=== PATIENT | female | born 1940 | race Caucasian/White ===

== ENCOUNTER 2017-09-03 08:15 | Day surgery (SDC) | payer MEDICARE ==
[~2017-09-03] VITALS: Ht 160 cm; Wt 66.2 kg
[~2017-09-03 08:15] MED LIST: ALBU90OI6 INH; AMLO10 PO; ATOR10 PO; Azor 10-20 MG1 EACH; CALMAGZIN PO; CHOL10002 PO; FISH OIL + D31 EACH PO; LISI20 PO; OXYB5 PO; TURMERIC500 M2 PO; VIT C BIOFLAVO PO; VIT E PO; VITAMIN B122500 MC1 PO; [UNRECOGNIZED DRUG - OTHER]
[2017-09-04 05:55] LABS: BASOPHILS ABSOLUTE AUTO 0.01 K/mm3 (0.00-0.23); BASOPHILS PERCENT AUTO 0 % (0-2); EOSINOPHILS ABSOLUTE AUTO 0.04 K/mm3 (0.00-0.68); EOSINOPHILS PERCENT AUTO 1 % (0-6); Hematocrit 30.8 % (33.0-51.0); Hemoglobin 9.8 g/dL (11.5-16.0); IMMATURE GRAN ABSOLUTE AUTO 0.02 K/mm3 (0.00-0.10); IMMATURE GRAN PERCENT AUTO 0 % (0-1); LYMPHOCYTES ABSOLUTE AUTO 1.25 K/mm3 (0.84-5.20); LYMPHOCYTES PERCENT AUTO 15 % (21-46); MONOCYTES ABSOLUTE AUTO 0.83 K/mm3 (0.16-1.47); MONOCYTES PERCENT AUTO 10 % (4-13); Mean Corpuscular HGB 29.9 pg (26.0-34.0); Mean Corpuscular HGB Conc 31.8 g/dL (31.5-36.5); Mean Corpuscular Volume 94 fL (80-100); Mean Platelet Volume 10.3 fL (9.1-12.4); NEUTROPHILS ABSOLUTE AUTO 6.24 K/mm3 (1.96-9.15); NEUTROPHILS PERCENT AUTO 74 % (41-73); Platelet Count 267 K/mm3 (150-400); RDW Standard Deviation 48.6 fL (35.1-46.3); Red Blood Cell Count 3.28 M/mm3 (3.80-5.20); White Blood Cell Count 8.39 K/mm3 (4.00-11.30)
[2017-09-04 06:12] LABS: Bun/Creatinine Ratio 25.7 (12.0-20.0); Calcium, Blood 8.6 mg/dL (8.5-10.1); Creatinine, Blood 1.13 mg/dL (0.40-1.00)
[2017-09-04] MEDS ORDERED: ASPI325EC PO (09:30)
[2017-09-04] MEDS ORDERED: PROM25 PO (09:31)
[2017-09-04] MEDS ORDERED: Percocet 5-3251 EACH PO (09:31)
== END 2017-09-04 12:55 | disposition home or self-care (01) ==
LOC: ORSCMMR 08:15 → ORD 10:00 → SURS 12:19 → ORSCMMR 09-04 12:55
PROVIDERS: Orthopaedic Surgery
PROC: 0SRC0J9 Replacement of Right Knee Joint with Synthetic Substitute, Cemented, Open Approach (ICD-10-PCS; principal; 2017-09-03 10:00)
DX: M17.11 Unilateral primary osteoarthritis, right knee (principal); Z01.818 Encounter for other preprocedural examination; I10 Essential (primary) hypertension; J44.9 Chronic obstructive pulmonary disease, unspecified; Z79.899 Other long term (current) drug therapy; Z87.891 Personal history of nicotine dependence
CPT/HCPCS: 36415; 73560-RT; 80048; 85025; 86850; 86900; 86901; 88300; 97110; 97116; 97161; 97530; C1713; C1776; G8978; G8979; G8980; J0171; J0690; J0735; J1100; J1885; J2405; J2795; J3010; J7120

== ENCOUNTER → 2022-08-29 | Outpatient (CLI) | payer MEDICARE ==
[~2022-08-29] MED LIST changes: +ASPI325EC PO; +PROM25 PO; +Percocet 5-3251 EACH PO
[2022-08-29 11:06] LABS: Albumin, Blood 3.8 g/dL (3.4-5.0); Anion Gap 9 mmol/L (6-16); Blood Urea Nitrogen 59 mg/dL (8-24); Bun/Creatinine Ratio 19.5 (12.0-20.0); CO2, Blood 22 mmol/L (21-32); Calcium, Blood 9.1 mg/dL (8.5-10.1); Chloride, Blood 108 mmol/L (98-108); Creatinine, Blood 3.02 mg/dL (0.40-1.00); Glomerular Filtration Rate 15 (60-); Glucose, Blood 96 mg/dL (70-99); Magnesium, Blood 2.7 mg/dL (1.6-2.4); Phosphorus, Blood 3.8 mg/dL (2.5-4.9); Sodium, Blood 139 mmol/L (136-145)
[2022-08-29 11:38] LABS: Creatinine Urine 44.4 mg/dL (27.00-270.00); Protein, Urine Quantitative 55.2 mg/dL (0.0-11.9)
== END ==
LOC: LAB SHORT 09:22 → LAB 09:22
PROVIDERS: Internal Medicine Nephrology
DX: N18.30 Chronic kidney disease, stage 3 unspecified (principal); D63.1 Anemia in chronic kidney disease; N25.81 Secondary hyperparathyroidism of renal origin; R76.9 Abnormal immunological finding in serum, unspecified; R94.5 Abnormal results of liver function studies; R94.6 Abnormal results of thyroid function studies; D51.8 Other vitamin B12 deficiency anemias; D52.8 Other folate deficiency anemias; D50.9 Iron deficiency anemia, unspecified
CPT/HCPCS: 36415; 80069; 81050; 82043; 82570; 83735; 84156

== ENCOUNTER → 2022-11-16 | Outpatient (CLI) | payer MEDICARE ==
[2022-11-19 10:34] LABS: Stool Occult Bld Immuno 1 Positive (NEGATIVE)
== END ==
LOC: LAB SHORT 20:00 → LAB 20:00
PROVIDERS: Internal Medicine Nephrology
DX: N18.30 Chronic kidney disease, stage 3 unspecified (principal); D63.1 Anemia in chronic kidney disease; R73.09 Other abnormal glucose; D51.8 Other vitamin B12 deficiency anemias; D52.8 Other folate deficiency anemias; D50.9 Iron deficiency anemia, unspecified
CPT/HCPCS: 82274

== ENCOUNTER 2023-01-01 14:38 | Emergency (ER) | payer MEDICARE ==
[~2023-01-01] VITALS: Ht 160 cm; Wt 55.8 kg
[2023-01-01 15:13] LABS: BASOPHILS ABSOLUTE AUTO 0.02 K/mm3 (0.00-0.23); BASOPHILS PERCENT AUTO 0 % (0-2); EOSINOPHILS ABSOLUTE AUTO 0.09 K/mm3 (0.00-0.68); EOSINOPHILS PERCENT AUTO 1 % (0-6); Hematocrit 38.7 % (33.0-51.0); Hemoglobin 12.4 g/dL (11.5-16.0); IMMATURE GRAN ABSOLUTE AUTO 0.01 K/mm3 (0.00-0.10); IMMATURE GRAN PERCENT AUTO 0 % (0-1); LYMPHOCYTES ABSOLUTE AUTO 0.79 K/mm3 (0.84-5.20); LYMPHOCYTES PERCENT AUTO 12 % (21-46); MONOCYTES ABSOLUTE AUTO 0.54 K/mm3 (0.16-1.47); MONOCYTES PERCENT AUTO 8 % (4-13); Mean Corpuscular HGB 31.1 pg (26.0-34.0); Mean Corpuscular Volume 97 fL (80-100); Mean Platelet Volume 10.5 fL (9.1-12.4); NEUTROPHILS ABSOLUTE AUTO 5.11 K/mm3 (1.96-9.15); NEUTROPHILS PERCENT AUTO 78 % (41-73); Platelet Count 264 K/mm3 (150-400); RDW Coefficient Variation 17.4 % (11.7-14.2); RDW Standard Deviation 62.8 fL (35.1-46.3); Red Blood Cell Count 3.99 M/mm3 (3.80-5.20); White Blood Cell Count 6.56 K/mm3 (4.00-11.30)
[2023-01-01 15:35] LABS: Albumin, Blood 3.1 g/dL (3.4-5.0); Albumin/Globulin Ratio 0.9 (0.8-1.8); Bilirubin, Total 0.3 mg/dL (0.1-1.0); Calcium, Blood 8.4 mg/dL (8.5-10.1); Creatinine, Blood 2.81 mg/dL (0.40-1.00); Globulin, Blood 3.6 g/dL (2.2-4.0); Potassium, Blood 3.7 mmol/L (3.5-5.5); Total Protein, Blood 6.7 g/dL (6.4-8.2)
[2023-01-01] MEDS ORDERED: HYDRA50 PO (15:52)
[2023-01-01] MEDS ORDERED: FURO20 PO (15:53)
[2023-01-01 21:20] VITALS: BP 160/138
== END 2023-01-01 21:28 | disposition home or self-care (01) ==
LOC: ER 14:38
PROVIDERS: Physician Assistant
DX: R10.13 Epigastric pain (principal); Z87.891 Personal history of nicotine dependence
CPT/HCPCS: 76705; 80053; 83690; 84484; 85025; 93005; 93010; 99284-25; A9270

== ENCOUNTER → 2023-01-05 | Outpatient (CLI) | payer MEDICARE ==
[~2023-01-05] MED LIST changes: +FURO20 PO; +HYDRA50 PO
[2023-01-05 19:46] LABS: BASOPHILS ABSOLUTE AUTO 0.03 K/mm3 (0.00-0.23); BASOPHILS PERCENT AUTO 1 % (0-2); EOSINOPHILS ABSOLUTE AUTO 0.12 K/mm3 (0.00-0.68); EOSINOPHILS PERCENT AUTO 2 % (0-6); Hematocrit 38.5 % (33.0-51.0); Hemoglobin 12.2 g/dL (11.5-16.0); IMMATURE GRAN ABSOLUTE AUTO 0.02 K/mm3 (0.00-0.10); IMMATURE GRAN PERCENT AUTO 0 % (0-1); LYMPHOCYTES ABSOLUTE AUTO 0.82 K/mm3 (0.84-5.20); LYMPHOCYTES PERCENT AUTO 16 % (21-46); MONOCYTES ABSOLUTE AUTO 0.45 K/mm3 (0.16-1.47); MONOCYTES PERCENT AUTO 9 % (4-13); Mean Corpuscular HGB 30.8 pg (26.0-34.0); Mean Corpuscular HGB Conc 31.7 g/dL (31.5-36.5); Mean Corpuscular Volume 97 fL (80-100); Mean Platelet Volume 11.3 fL (9.1-12.4); NEUTROPHILS ABSOLUTE AUTO 3.59 K/mm3 (1.96-9.15); NEUTROPHILS PERCENT AUTO 71 % (41-73); Platelet Count 331 K/mm3 (150-400); RDW Coefficient Variation 17.3 % (11.7-14.2); RDW Standard Deviation 62.2 fL (35.1-46.3); Red Blood Cell Count 3.96 M/mm3 (3.80-5.20); White Blood Cell Count 5.03 K/mm3 (4.00-11.30)
[2023-01-05 20:17] LABS: Albumin, Blood 3.3 g/dL (3.4-5.0); Albumin/Globulin Ratio 0.8 (0.8-1.8); Bilirubin, Total 0.3 mg/dL (0.1-1.0); Calcium, Blood 8.9 mg/dL (8.5-10.1); Creatinine, Blood 2.46 mg/dL (0.40-1.00); Globulin, Blood 3.9 g/dL (2.2-4.0); Total Protein, Blood 7.2 g/dL (6.4-8.2)
[2023-01-08 20:06] LABS: T-TRANSGLUTAMINASE (TTG) IGA <2 U/mL (0-3); T-TRANSGLUTAMINASE (TTG) IGG <2 U/mL (0-5)
== END ==
LOC: LAB 18:26 → LAB SHORT 18:26
PROVIDERS: Physician Assistant
DX: R10.9 Unspecified abdominal pain (principal)
CPT/HCPCS: 80053; 83516; 83690; 85025; 86364

== ENCOUNTER → 2023-01-06 | Outpatient (CLI) | payer MEDICARE | LOC: LAB SHORT 13:16 → LAB 13:16 | DX: L08.9 Local infection of the skin and subcutaneous tissue, unspecified (principal) | CPT/HCPCS: 87070; 87077; 87147; 87186; 87205 ==

== ENCOUNTER → 2023-01-07 | Outpatient (CLI) | payer MEDICARE ==
[2023-01-07 20:15] LABS: Adenovirus F 40/41 Not Detected (NOT DETECT); Astrovirus Not Detected (NOT DETECT); Campylobacter Sp Not Detected (NOT DETECT); Cryptosporidium Not Detected (NOT DETECT); Cyclospora Cayetanensis Not Detected (NOT DETECT); E. Coli O157 Not Detected (NOT DETECT); Entamoeba Histolytica Not Detected (NOT DETECT); Enteroaggregative E. coli-EAEC Not Detected (NOT DETECT); Enteropathogenic E. coli-EPEC Not Detected (NOT DETECT); Enterotoxigenic E. coli-ETEC Not Detected (NOT DETECT); Giardia Lamblia Not Detected (NOT DETECT); Norovirus GI/GII Not Detected (NOT DETECT); Plesiomonas Shigelloides Not Detected (NOT DETECT); Rotavirus A Not Detected (NOT DETECT); Salmonella Sp Not Detected (NOT DETECT); Sapovirus Not Detected (NOT DETECT); Shiga Toxin-prod E. coli-STEC Not Detected (NOT DETECT); Shigella/Enteroin E. coli-EIEC Not Detected (NOT DETECT); Vibrio Cholerae Not Detected (NOT DETECT); Vibrio Sp Not Detected (NOT DETECT); Yersinia Enterocolitica Not Detected (NOT DETECT)
== END | disposition home or self-care (01) ==
LOC: LAB 07:00 → LAB SHORT 07:00
PROVIDERS: Physician Assistant
DX: R10.9 Unspecified abdominal pain (principal)
CPT/HCPCS: 87324; 87338; 87507

== ENCOUNTER → 2023-01-21 | Outpatient (CLI) | payer MEDICARE | LOC: LAB SHORT 16:32 → LAB 16:32 | DX: L08.9 Local infection of the skin and subcutaneous tissue, unspecified (principal) | CPT/HCPCS: 87070; 87077; 87147; 87186; 87205 ==

== ENCOUNTER → 2024-05-10 | Outpatient (CLI) | payer MEDICARE ==
[2024-05-10 16:41] LABS: BASOPHILS ABSOLUTE AUTO 0.02 K/mm3 (0.00-0.23); BASOPHILS PERCENT AUTO 1 % (0-2); EOSINOPHILS ABSOLUTE AUTO 0.02 K/mm3 (0.00-0.68); EOSINOPHILS PERCENT AUTO 1 % (0-6); Hematocrit 28.5 % (33.0-51.0); Hemoglobin 8.7 g/dL (11.5-16.0); IMMATURE GRAN ABSOLUTE AUTO 0.04 K/mm3 (0.00-0.10); IMMATURE GRAN PERCENT AUTO 1 % (0-1); LYMPHOCYTES ABSOLUTE AUTO 0.33 K/mm3 (0.84-5.20); LYMPHOCYTES PERCENT AUTO 8 % (21-46); MONOCYTES ABSOLUTE AUTO 0.37 K/mm3 (0.16-1.47); MONOCYTES PERCENT AUTO 9 % (4-13); Mean Corpuscular HGB 32.5 pg (26.0-34.0); Mean Corpuscular HGB Conc 30.5 g/dL (31.5-36.5); Mean Corpuscular Volume 106 fL (80-100); Mean Platelet Volume 10.5 fL (9.1-12.4); NEUTROPHILS ABSOLUTE AUTO 3.18 K/mm3 (1.96-9.15); NEUTROPHILS PERCENT AUTO 80 % (41-73); Platelet Count 291 K/mm3 (150-400); RDW Coefficient Variation 17.5 % (11.7-14.2); RDW Standard Deviation 66.6 fL (35.1-46.3); Red Blood Cell Count 2.68 M/mm3 (3.80-5.20); White Blood Cell Count 3.96 K/mm3 (4.00-11.30)
== END ==
LOC: LAB 16:32 → LAB SHORT 16:32
PROVIDERS: Internal Medicine Nephrology
DX: N18.6 End stage renal disease (principal)
CPT/HCPCS: 85025

== ENCOUNTER 2024-08-26 01:40 | Day surgery (SDC) | payer MEDICARE ==
[2024-08-26] MEDS ORDERED: Lidocaine HCl 4% Cream 5 GM ONE (12:59)
== END 2024-08-26 23:00 | disposition home or self-care (01) ==
LOC: WOUND 01:40
DX: L89.523 Pressure ulcer of left ankle, stage 3 (principal); L89.893 Pressure ulcer of other site, stage 3; L89.512 Pressure ulcer of right ankle, stage 2; L97.212 Non-pressure chronic ulcer of right calf with fat layer exposed; I87.2 Venous insufficiency (chronic) (peripheral); I73.9 Peripheral vascular disease, unspecified; I12.0 Hypertensive chronic kidney disease with stage 5 chronic kidney disease or end stage renal disease; N18.6 End stage renal disease; J44.9 Chronic obstructive pulmonary disease, unspecified; Z87.891 Personal history of nicotine dependence; Z99.2 Dependence on renal dialysis
CPT/HCPCS: A6213; A9270; G0463

== ENCOUNTER 2024-09-26 10:00 | Inpatient (IN) | payer MEDICARE ==
[~2024-09-26] VITALS: Ht 160 cm; Wt 52.9 kg
[2024-09-26] MEDS ORDERED: Lidocaine/Tetracaine/Epinephr 3 ML GEL SYRINGE TOP ONE (10:15)
[2024-09-26] MEDS ORDERED: HYDROmorphone HCl/Pf 1MG SYR IV ONE (12:20)
[2024-09-26 14:40] LABS: BASOPHILS ABSOLUTE AUTO 0.04 K/mm3 (0.00-0.23); BASOPHILS PERCENT AUTO 0 % (0-2); EOSINOPHILS ABSOLUTE AUTO 0.01 K/mm3 (0.00-0.68); EOSINOPHILS PERCENT AUTO 0 % (0-6); Hematocrit 34.7 % (33.0-51.0); Hemoglobin 10.3 g/dL (11.5-16.0); IMMATURE GRAN ABSOLUTE AUTO 0.09 K/mm3 (0.00-0.10); IMMATURE GRAN PERCENT AUTO 1 % (0-1); LYMPHOCYTES ABSOLUTE AUTO 0.36 K/mm3 (0.84-5.20); LYMPHOCYTES PERCENT AUTO 3 % (21-46); MONOCYTES ABSOLUTE AUTO 0.64 K/mm3 (0.16-1.47); MONOCYTES PERCENT AUTO 6 % (4-13); Mean Corpuscular HGB Conc 29.7 g/dL (31.5-36.5); Mean Corpuscular Volume 106 fL (80-100); NEUTROPHILS ABSOLUTE AUTO 9.65 K/mm3 (1.96-9.15); NEUTROPHILS PERCENT AUTO 90 % (41-73); NRBC ABSOLUTE 0.00 K/mm3 (0.00-0.02); NRBC Auto 0.0 /100 WBC (0.0-0.2); Platelet Count 489 K/mm3 (150-400); RDW Coefficient Variation 15.9 % (11.7-14.2); RDW Standard Deviation 60.8 fL (35.1-46.3)
[2024-09-26] MEDS ORDERED: FentaNYL Citrate 50 MCG/ML 2 ML Injection IV PRN (14:40)
[2024-09-26] MEDS ORDERED: Ondansetron HCl 2 MG / ML 2ML Vial IV PRN (14:40)
[2024-09-26 14:55] LABS: Alanine Aminotransfer (ALT/SGP 16.0 U/L (12-78); Albumin, Blood 2.9 g/dL (3.4-5.0); Albumin/Globulin Ratio 0.7 (0.8-1.8); Anion Gap 13.0 mmol/L (3-11); Aspartate Aminotrans (AST/SGOT 24.0 U/L (12-37); Bilirubin, Total 0.5 mg/dL (0.1-1.0); Blood Urea Nitrogen 67.0 mg/dL (8-24); CO2, Blood 28.0 mmol/L (21-32); Calcium, Blood 8.5 mg/dL (8.5-10.1); Chloride, Blood 97.0 mmol/L (98-108); Creatinine, Blood 5.37 mg/dL (0.40-1.00); Globulin, Blood 4.3 g/dL (2.2-4.0); Glucose, Blood 93.0 mg/dL (70-99); Potassium, Blood 4.6 mmol/L (3.5-5.5); Sodium, Blood 133.0 mmol/L (136-145); Total Protein, Blood 7.2 g/dL (6.4-8.2)
[2024-09-26] MEDS ORDERED: Albuterol HFA200 ACT/6.7 GM INH INH PRN (16:45)
[2024-09-26 17:52] VITALS: BP 147/86
[2024-09-26] MEDS ORDERED: MELATONIN1010 PO (18:05)
[2024-09-26] MEDS ORDERED: Darbepoetin (Pharmacy Consult) SC SCH (18:50)
[2024-09-26 19:44] VITALS: BP 140/71
[2024-09-26 23:51] VITALS: BP 151/85
[2024-09-27] VITALS (34 sets, daily range): BP systolic 90–153; BP diastolic 50–96
--- NOTE | 2024-09-27 06:26 | NUR ---
NOC SUMMARY- PT PAIN MANAGED WELL WITH TYLENOL. PT HAS RESTED COMFORTABLY. PT HAS BEEN NPO SINCE MT. PT IS SCHEDULED FOR DIALYSIS BEFORE SX. PT CURRENTLY RESTING QUIETLY AND IN NO DISTRESS. CALL LIGHT IN REACH.
[2024-09-27 06:46] LABS: Hematocrit 32.2 % (33.0-51.0); Hemoglobin 9.9 g/dL (11.5-16.0)
[2024-09-27 07:10] LABS: Albumin, Blood 2.6 g/dL (3.4-5.0); Anion Gap 16 mmol/L (3-11); Blood Urea Nitrogen 87 mg/dL (8-24); CO2, Blood 26 mmol/L (21-32); Calcium, Blood 8.5 mg/dL (8.5-10.1); Chloride, Blood 94 mmol/L (98-108); Creatinine, Blood 6.81 mg/dL (0.40-1.00); Glucose, Blood 94 mg/dL (70-99); Magnesium, Blood 2.5 mg/dL (1.6-2.4); Phosphorus, Blood 6.6 mg/dL (2.5-4.9); Potassium, Blood 5.2 mmol/L (3.5-5.5); Sodium, Blood 131 mmol/L (136-145)
[2024-09-27] MEDS ORDERED: Calcium Acetate 667 MG Gel Cap PO SCH (08:30)
[2024-09-27] MEDS ORDERED: Omega-3 Acid Ethyl Esters 1,000 MG CAP PO SCH (09:00)
[2024-09-27] MEDS ORDERED: Cholecalciferol 1000 Unit Tablet (=25MCG) PO SCH (09:00)
[2024-09-27] MEDS ORDERED: Vitamin B Cmplx/Vit C/Folic Ac 1 Tab PO SCH (09:00)
--- NOTE | 2024-09-27 13:20 | NUR ---
TO DAY SURGERY VIA HOSPITAL BED
[2024-09-27] MEDS ORDERED: CeFAZolin Sodium 2,000 MG in NS 100 ML IV SCH (13:35)
[2024-09-27] MEDS ORDERED: NS 500 ML IV SCH (13:35)
[2024-09-27] MEDS ORDERED: Tranexamic Acid 100 ML IV SCH (13:37)
[2024-09-27] MEDS ORDERED: Ipratropium/Albuterol SulF 2.5-0.5MG/3 ML Amp INH ONE (13:40)
--- NOTE | 2024-09-27 13:40 | NUR ---
INTO SDS VIA BED. PT [place]. PT REPORTS 4/10 LEFT HIP PAIN. HISTORY AND ALLERGIES REVIEWED. LUNGS WITH SCATTERED WZ T/O. SATS>90% ON [address] ROSS UPDATED TO WZ AND DUONEB ORDERED. NPO STATUS CONFIMED. PT HAS SCATTERED WOUNDS T/O HER EXTREMITIES. PT REPORTS THAT SHE HAD BEEN GOING TO WOUND CARE CLINIC FOR THE WOUNDS ON HER LEGS AND FEET. 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 JEWEL VIERA IS PT POA.
[2024-09-27] MEDS ORDERED: CeFAZolin Sodium 2,000 MG VIAL ONE (13:44)
--- NOTE | 2024-09-27 14:36 | NUR ---
PT REPORTS "STABBING" PAIN TO LEFT LOWER EXTREMITY 6/10-MED WITH FENTANYL 25 MCG IVP X 1-SEE EMAR.
[2024-09-27] MEDS ORDERED: Ipratropium/Albuterol SulF 2.5-0.5MG/3 ML Amp INH SCH (14:50)
[2024-09-27] MEDS ORDERED: Darbepoetin Alfa in Polysorbat 25 MCG/0.42 ML Syringe SC SCH (16:00)
[2024-09-27] MEDS ORDERED: Bupivacaine 0.5% W/EPI 1:200000 SDV 30 ML Vial ONE (16:09)
[2024-09-27] MEDS ORDERED: Ketamine HCl 100 MG / ML 5ML Vial ONE (16:14)
[2024-09-27] MEDS ORDERED: Midazolam HCl 1MG / ML 2ML Vial ONE (16:14)
[2024-09-27] MEDS ORDERED: FentaNYL Citrate 50 MCG/ML 2 ML Injection ONE (16:17)
[2024-09-27] MEDS ORDERED: Phenylephrine HCl 100 MCG/ML-NS 10MLSYR (1MG/10ML) ONE (16:46)
[2024-09-27] MEDS ORDERED: Labetalol HCL 5 MG/ML 4ML Injection (Single Dose) ONE (17:32)
[2024-09-27] MEDS ORDERED: Ropivacaine 0.5% HCL/PF 5 MG/ML 30ML Vial ONE (17:40)
[2024-09-28] VITALS (22 sets, daily range): BP systolic 104–158; BP diastolic 55–82
[2024-09-28 05:11] LABS: Hematocrit 30.4 % (33.0-51.0); Hemoglobin 9.3 g/dL (11.5-16.0)
[2024-09-28 05:53] LABS: Albumin, Blood 2.5 g/dL (3.4-5.0); Anion Gap 6 mmol/L (3-11); Blood Urea Nitrogen 45 mg/dL (8-24); CO2, Blood 35 mmol/L (21-32); Calcium, Blood 8.1 mg/dL (8.5-10.1); Chloride, Blood 94 mmol/L (98-108); Creatinine, Blood 4.40 mg/dL (0.40-1.00); Glucose, Blood 90 mg/dL (70-99); Magnesium, Blood 2.3 mg/dL (1.6-2.4); Phosphorus, Blood 5.8 mg/dL (2.5-4.9); Potassium, Blood 4.6 mmol/L (3.5-5.5); Sodium, Blood 130 mmol/L (136-145)
--- NOTE | 2024-09-28 06:03 | NUR ---
SHIFT SUMMARY PATIENT ALERT AND ORIENTED X4. MEDICATED PER EMAR FOR PAIN. DENIES ANY CHEST PAIN OR SHORTNESS OF BREATH. PATIENT ON HOME DOSE OF OXYGEN AT 2 LITERS VIA NC. VITAL SIGNS STABLE, NO ISSUES WITH HEART RATE. PATIENT UP TO THE COMMODE THIS MORNING WITH 2 PERSON ASSIST.NO ACUTE ISSUES NOTED OVERNIGHT. WILL CONTINUE TO MONITOR. CALL LIGHT WITHIN REACH.
[2024-09-28 08:54] LABS: Hematocrit 35.1 % (33.0-51.0); Hemoglobin 10.7 g/dL (11.5-16.0); Platelet Count 461 K/mm3 (150-400)
[2024-09-28 09:10] LABS: Anti-Xa UFH, PHA Monitoring <0.10 IU/mL; Prothrombin Time Results 11.1 Sec (9.7-11.5)
[2024-09-28] MEDS ORDERED: Heparin Sodium,Porcine/0.5 NS 500 ML IV SCH (09:20)
--- NOTE | 2024-09-28 17:33 | NUR ---
SHIFT SUMMARY PT A/OX4 AND COOPERATIVE OF CARE. PT ABLE TO EXPRESS NEEDS AND CALLS APPROPIATE. PT UP TO RECLINER MULTIPLE TIMES TODAY AND WORKED WITH PHYSICAL THERAPY, SEE THERAPIST NOTES. PT HR AFLUT WITH CONTROLED RATES IN THE 80-100'S. OTHE RVSS THROUGHOUT SHIFT WITH O2 SATS IN THE 90'S ON RA. NO REPORT OF CHEST APIN/PRESSURE THROUGHOUT SHIFT. NO REPORT OF SOB/DYSPNEA THROUGHOUT SHIFT. PT UP TO BSC FOR BM THIS SHIFT, DARK IN COLOR. PT RPEORTS THAT SHE TYPICALLY HAS DARK COLORED STOOLS. PT STARTED ON HEP GTT, SEE ORDERS. PT SON TO BEDSIDE THIS SHIFT AND UPDATED ON PLAN OF CARE. PT DOWN TO DIALYSIS TODAY, PLAN FOR ANOTHER ROUND TOMORROW.
[2024-09-28] MEDS ORDERED: Dose Adjust by Pharmacy XX STA (18:19)
[2024-09-28] MEDS ORDERED: Heparin Sodium 5000 Units/ML 1ML MDV IV ONE (18:20)
[2024-09-29] VITALS (20 sets, daily range): BP systolic 95–135; BP diastolic 53–89
--- NOTE | 2024-09-29 01:23 | NUR ---
TRANSFER PT ARRIVED FROM PCU AT APPROX 0115 TODAY. IS A/OX4. DENIES SOB, PAIN, N/T, CHEST PAIN OR N/V. IS POD 2 S/P LEFT HIP NAILING. DECLINES ICE TO LEFT HIP. HEPARIN DRIP INFUSING PER ORDERS. IV SITE CDI. ON 2L NC AT BASELINE. TELE IN PLACE, PER TECH HR AFLUTTER AT 91 BPM. COMPRESSION STOCKINGS AND SCDS TO BLE. PT DENIES NEEDS. ORIENTATION TO ROOM PROVIDED. IS CURRENTLY RESTING IN BED WITH EYES CLOSED AND CALL LIGHT IN REACH.
[2024-09-29 01:25] LABS: Hematocrit 30.4 % (33.0-51.0); Hemoglobin 9.0 g/dL (11.5-16.0)
[2024-09-29 01:43] LABS: Albumin, Blood 2.2 g/dL (3.4-5.0); Anion Gap 6 mmol/L (3-11); Blood Urea Nitrogen 31 mg/dL (8-24); CO2, Blood 34 mmol/L (21-32); Calcium, Blood 8.0 mg/dL (8.5-10.1); Chloride, Blood 101 mmol/L (98-108); Creatinine, Blood 3.51 mg/dL (0.40-1.00); Glucose, Blood 89 mg/dL (70-99); Magnesium, Blood 2.1 mg/dL (1.6-2.4); Phosphorus, Blood 4.2 mg/dL (2.5-4.9); Potassium, Blood 4.1 mmol/L (3.5-5.5); Sodium, Blood 137 mmol/L (136-145)
[2024-09-29] MEDS ORDERED: Dose Adjust by Pharmacy XX STA (02:05)
[2024-09-29] MEDS ORDERED: Heparin Sodium 5000 Units/ML 1ML MDV IV ONE (02:10)
[2024-09-29 02:34] LABS: Platelet Count 376 K/mm3 (150-400)
--- NOTE | 2024-09-29 03:51 | NUR ---
SHIFT SUMMARY NO ACUTE CHANGES SINCE TRANSFER. HEPARIN DOSE INCREASED AND BOLUS GIVEN PER PHARMACY ORDERS, NOW AT 19UNITS/KG/HR. TELE IN PLACE, AFLUTTER AT 95 BPM PER 3D ARTIST. PT DENIES CP/PRESSURE/SOB. IS POD 2 S/P LEFT HIP NAILING. AQUACEL CDI, REF ICE. SOME SWELLING NOTED. DENIES NEED FOR PAIN MEDICATION, PAIN MANAGED WITH TYLENOL. PLAN TO CONT OT/PT THERAPY. SCDS & COMPRESSION STOCKING BLE. HAS CALL LIGHT IN REACH AND ABLE TO MAKE NEEDS KNOWN. WILL GIVE REPORT TO ONCOMING RN.
--- NOTE | 2024-09-29 09:20 | NUR ---
pt sitting up in bed watching tv, a/ox4, pleasant and cooperative with care, follows commands well, denies pain at this time, dressing to r elbow fell off, large skin tear noted, replaced dressing, lungs have ins/exp wheezing t/o, just had a breathing tx, no cough noted or reported, currently on 1.5 liters 02 via n/c, resp even and unlabored, she is home o2 dep, hrr, tele in place running aflutter, no edema noted, ppp+1, cap refill<3 sec, vs stable, afebrile, piv to rfa infusing heperin gtt running per may, btx4, abd flat soft nontender, pt reports voids very little, skin is frail has multiple bruising and skin tear, bella santana, call light in reach, instrument repair supervisor taking her to dialysis at this time.
--- NOTE | 2024-09-29 18:22 | NUR ---
pt up to chair for meals, denies any complaints of pain this eveing. did have dialysis today, tolerated well. heperin was stopped and started on oral thinner, no further changes this shift. call light in reach.
[2024-09-30 05:14] VITALS: BP 131/66
[2024-09-30 05:38] LABS: Hematocrit 30.4 % (33.0-51.0); Hemoglobin 9.1 g/dL (11.5-16.0)
--- NOTE | 2024-09-30 05:45 | NUR ---
NOC SUMMARY- PT PAIN MANAGED WELL. PT RESTED COMFORTABLY. PT DRESSING C/D/I. NO EVENTS REPORTED BY OPTICAL GLASS WET INSPECTOR. CALL LIGHT IN REACH.
[2024-09-30 06:24] LABS: Albumin, Blood 2.2 g/dL (3.4-5.0); Anion Gap 9 mmol/L (3-11); Blood Urea Nitrogen 36 mg/dL (8-24); CO2, Blood 30 mmol/L (21-32); Calcium, Blood 8.3 mg/dL (8.5-10.1); Chloride, Blood 96 mmol/L (98-108); Creatinine, Blood 3.10 mg/dL (0.40-1.00); Glucose, Blood 85 mg/dL (70-99); Magnesium, Blood 2.2 mg/dL (1.6-2.4); Phosphorus, Blood 3.8 mg/dL (2.5-4.9); Potassium, Blood 4.4 mmol/L (3.5-5.5); Sodium, Blood 131 mmol/L (136-145)
[2024-09-30 07:35] VITALS: BP 139/70
[2024-09-30 11:02] VITALS: BP 122/62
--- NOTE | 2024-09-30 11:49 | NUR ---
DISCHARGE UPDATE TRANSPORT ARRIVED AT 1130. PT DISCHARGED AT 1145 VIA WHEELCHAIR AND ON 2L NC. PT ABLE TO TRANSFER FROM BED TO WHEELCHAIR WITH MODERATE ASSISTANCE VIA FWW/GB. PT PERSONAL BELONGINGS WITH PT AT TIME OF DISCHARGE. DICHARGE PACKE T WITH TRANSPORT. REPORT CALLED TO BOOGIE NURSE AT 1140.
== END 2024-09-30 11:39 | DRG 480 ==
LOC: ER 10:00 → ERHOLD 14:36 → PCU 14:36 → SURS 14:36 → ERHOLD 17:29 → SURS 17:53 → PCU 09-27 17:32 → SURS 09-29 01:13
PROVIDERS: Internal Medicine Nephrology; Orthopaedic Surgery; Physician Assistant; ADMIT Internal Medicine
PROC: 5A1D70Z Performance of Urinary Filtration, Intermittent, Less than 6 Hours Per Day (ICD-10-PCS; 2024-09-26)
PROC: 0QS736Z Reposition Left Upper Femur with Intramedullary Internal Fixation Device, Percutaneous Approach (ICD-10-PCS; principal; 2024-09-27 16:00)
DX: S72.142A Displaced intertrochanteric fracture of left femur, initial encounter for closed fracture (principal); N18.6 End stage renal disease; N25.81 Secondary hyperparathyroidism of renal origin; E87.1 Hypo-osmolality and hyponatremia; I12.0 Hypertensive chronic kidney disease with stage 5 chronic kidney disease or end stage renal disease; I97.191 Other postprocedural cardiac functional disturbances following other surgery; Z85.3 Personal history of malignant neoplasm of breast; W18.30XA Fall on same level, unspecified, initial encounter; Z92.3 Personal history of irradiation; J44.89 Other specified chronic obstructive pulmonary disease; Z90.10 Acquired absence of unspecified breast and nipple; Z87.891 Personal history of nicotine dependence; Z79.899 Other long term (current) drug therapy; D63.1 Anemia in chronic kidney disease; E88.09 Other disorders of plasma-protein metabolism, not elsewhere classified; E87.5 Hyperkalemia; Y83.8 Other surgical procedures as the cause of abnormal reaction of the patient, or of later complication, without mention of misadventure at the time of the procedure; Z98.890 Other specified postprocedural states
CPT/HCPCS: 36415; 73502; 73562-LT; 73610; 80053; 80069; 83735; 85014; 85018; 85025; 85049; 85520; 85610; 85730; 93005; 93010; 93306; 94640; 94664; 94760; 94762; 97110; 97116; 97161; 97530; 99285-25; A9270; C1713; C1769; J0690; J1644; J2250; J2371; J2704; J2795; J3010; J7030

== ENCOUNTER 2024-10-31 00:36 | Day surgery (SDC) | payer MEDICARE ==
[~2024-10-31 00:36] MED LIST changes: +MELATONIN1010 PO
[2024-10-31] MEDS ORDERED: Lidocaine HCl 4% Cream 5 GM ONE (10:14)
== END 2024-10-31 23:00 | disposition home or self-care (01) ==
LOC: WOUND 00:36
DX: L89.523 Pressure ulcer of left ankle, stage 3 (principal); I87.2 Venous insufficiency (chronic) (peripheral); I73.9 Peripheral vascular disease, unspecified; J44.9 Chronic obstructive pulmonary disease, unspecified; I12.0 Hypertensive chronic kidney disease with stage 5 chronic kidney disease or end stage renal disease; N18.6 End stage renal disease; Z99.2 Dependence on renal dialysis
CPT/HCPCS: A6196; A6213; A9270

== ENCOUNTER 2024-11-14 00:32 | Day surgery (SDC) | payer MEDICARE ==
[2024-11-14] MEDS ORDERED: Lidocaine HCl 4% Cream 5 GM ONE (13:34)
== END 2024-11-14 23:21 | disposition home or self-care (01) ==
LOC: WOUND 00:32
DX: L89.523 Pressure ulcer of left ankle, stage 3 (principal); L89.893 Pressure ulcer of other site, stage 3; S81.801A Unspecified open wound, right lower leg, initial encounter; X58.XXXA Exposure to other specified factors, initial encounter; S81.801D Unspecified open wound, right lower leg, subsequent encounter; X58.XXXD Exposure to other specified factors, subsequent encounter; I87.2 Venous insufficiency (chronic) (peripheral); I73.9 Peripheral vascular disease, unspecified; J44.9 Chronic obstructive pulmonary disease, unspecified; I12.0 Hypertensive chronic kidney disease with stage 5 chronic kidney disease or end stage renal disease; N18.6 End stage renal disease; Z99.2 Dependence on renal dialysis
CPT/HCPCS: A6196; A6213; A9270

== ENCOUNTER 2024-11-28 01:30 | Day surgery (SDC) | payer MEDICARE ==
[2024-11-28] MEDS ORDERED: Lidocaine HCl 4% Cream 5 GM ONE (14:47)
== END 2024-11-28 23:00 | disposition home or self-care (01) ==
LOC: WOUND 01:30
DX: L89.523 Pressure ulcer of left ankle, stage 3 (principal); L89.893 Pressure ulcer of other site, stage 3; S81.801A Unspecified open wound, right lower leg, initial encounter; X58.XXXA Exposure to other specified factors, initial encounter; I87.2 Venous insufficiency (chronic) (peripheral); I73.9 Peripheral vascular disease, unspecified; J44.9 Chronic obstructive pulmonary disease, unspecified; I12.0 Hypertensive chronic kidney disease with stage 5 chronic kidney disease or end stage renal disease; N18.6 End stage renal disease; Z99.2 Dependence on renal dialysis
CPT/HCPCS: A6196; A6213; A9270

== ENCOUNTER 2024-12-05 02:45 | Day surgery (SDC) | payer MEDICARE ==
[2024-12-05] MEDS ORDERED: Lidocaine HCl 4% Cream 5 GM ONE (09:54)
== END 2024-12-05 23:00 | disposition home or self-care (01) ==
LOC: WOUND 02:45
DX: L89.523 Pressure ulcer of left ankle, stage 3 (principal); L89.893 Pressure ulcer of other site, stage 3; S81.802A Unspecified open wound, left lower leg, initial encounter; I87.2 Venous insufficiency (chronic) (peripheral); I73.9 Peripheral vascular disease, unspecified; I12.0 Hypertensive chronic kidney disease with stage 5 chronic kidney disease or end stage renal disease; N18.6 End stage renal disease; J44.9 Chronic obstructive pulmonary disease, unspecified; Z99.2 Dependence on renal dialysis
CPT/HCPCS: A6196; A6213; A9270

== ENCOUNTER 2024-12-19 01:28 | Day surgery (SDC) | payer MEDICARE ==
[2024-12-19] MEDS ORDERED: Lidocaine HCl 4% Cream 5 GM ONE (10:14)
== END 2024-12-19 23:00 | disposition home or self-care (01) ==
LOC: WOUND 01:28
DX: L89.523 Pressure ulcer of left ankle, stage 3 (principal); L89.893 Pressure ulcer of other site, stage 3; S81.801D Unspecified open wound, right lower leg, subsequent encounter; I87.2 Venous insufficiency (chronic) (peripheral); I73.9 Peripheral vascular disease, unspecified; I12.0 Hypertensive chronic kidney disease with stage 5 chronic kidney disease or end stage renal disease; N18.6 End stage renal disease; J44.9 Chronic obstructive pulmonary disease, unspecified
CPT/HCPCS: A6213; A9270

== ENCOUNTER 2024-12-21 12:14 | Emergency (ER) | payer MEDICARE ==
[~2024-12-21] VITALS: Ht 160 cm; Wt 51.3 kg
[2024-12-21 12:18] VITALS: BP 100/62
[2024-12-21 12:46] LABS: BASOPHILS ABSOLUTE AUTO 0.03 K/mm3 (0.00-0.23); BASOPHILS PERCENT AUTO 0 % (0-2); EOSINOPHILS ABSOLUTE AUTO 0.10 K/mm3 (0.00-0.68); EOSINOPHILS PERCENT AUTO 1 % (0-6); Hematocrit 41.6 % (33.0-51.0); Hemoglobin 12.4 g/dL (11.5-16.0); IMMATURE GRAN ABSOLUTE AUTO 0.03 K/mm3 (0.00-0.10); IMMATURE GRAN PERCENT AUTO 0 % (0-1); LYMPHOCYTES ABSOLUTE AUTO 1.14 K/mm3 (0.84-5.20); LYMPHOCYTES PERCENT AUTO 16 % (21-46); MONOCYTES ABSOLUTE AUTO 0.55 K/mm3 (0.16-1.47); MONOCYTES PERCENT AUTO 8 % (4-13); Mean Corpuscular HGB Conc 29.8 g/dL (31.5-36.5); Mean Corpuscular Volume 105 fL (80-100); NEUTROPHILS ABSOLUTE AUTO 5.10 K/mm3 (1.96-9.15); NEUTROPHILS PERCENT AUTO 74 % (41-73); NRBC ABSOLUTE 0.00 K/mm3 (0.00-0.02); NRBC Auto 0.0 /100 WBC (0.0-0.2); Platelet Count 318 K/mm3 (150-400); RDW Coefficient Variation 18.2 % (11.7-14.2); RDW Standard Deviation 68.2 fL (35.1-46.3)
[2024-12-21 13:11] LABS: Alanine Aminotransfer (ALT/SGP 20.0 U/L (12-78); Albumin, Blood 3.0 g/dL (3.4-5.0); Albumin/Globulin Ratio 0.8 (0.8-1.8); Anion Gap 9.0 mmol/L (3-11); Aspartate Aminotrans (AST/SGOT 22.0 U/L (12-37); Bilirubin, Total 0.3 mg/dL (0.1-1.0); Blood Urea Nitrogen 36.0 mg/dL (8-24); CO2, Blood 33.0 mmol/L (21-32); Calcium, Blood 8.6 mg/dL (8.5-10.1); Chloride, Blood 100.0 mmol/L (98-108); Creatinine, Blood 4.42 mg/dL (0.40-1.00); Globulin, Blood 3.9 g/dL (2.2-4.0); Glucose, Blood 188.0 mg/dL (70-99); Potassium, Blood 4.2 mmol/L (3.5-5.5); Sodium, Blood 138.0 mmol/L (136-145); Total Protein, Blood 6.9 g/dL (6.4-8.2)
[2024-12-21] MEDS ORDERED: Preparation H26 GM TOP (16:23)
== END 2024-12-21 17:03 | disposition home or self-care (01) ==
LOC: ER 12:14
PROVIDERS: Physician Assistant
DX: L02.31 Cutaneous abscess of buttock (principal); K64.9 Unspecified hemorrhoids; Z99.2 Dependence on renal dialysis; Z79.899 Other long term (current) drug therapy; Z87.891 Personal history of nicotine dependence; Z59.89 Other problems related to housing and economic circumstances
CPT/HCPCS: 80053; 85025; 93005; 93010; 99283-25

== ENCOUNTER 2025-01-10 00:58 | Day surgery (SDC) | payer MEDICARE ==
[~2025-01-10 00:58] MED LIST changes: +Preparation H26 GM TOP
[2025-01-10] MEDS ORDERED: Lidocaine HCl 4% Cream 5 GM ONE (09:20)
== END 2025-01-10 23:00 | disposition home or self-care (01) ==
LOC: WOUND 00:58
DX: L89.523 Pressure ulcer of left ankle, stage 3 (principal); L89.893 Pressure ulcer of other site, stage 3; I12.0 Hypertensive chronic kidney disease with stage 5 chronic kidney disease or end stage renal disease; N18.6 End stage renal disease; I73.9 Peripheral vascular disease, unspecified; I87.2 Venous insufficiency (chronic) (peripheral); J44.9 Chronic obstructive pulmonary disease, unspecified; Z99.2 Dependence on renal dialysis
CPT/HCPCS: A6213; A9270

== ENCOUNTER 2025-01-17 01:21 | Day surgery (SDC) | payer MEDICARE ==
[2025-01-17] MEDS ORDERED: Lidocaine HCl 4% Cream 5 GM ONE (09:34)
== END 2025-01-17 22:44 | disposition home or self-care (01) ==
LOC: WOUND 01:21
DX: L89.523 Pressure ulcer of left ankle, stage 3 (principal); S81.802D Unspecified open wound, left lower leg, subsequent encounter; L89.893 Pressure ulcer of other site, stage 3; N18.6 End stage renal disease; I12.0 Hypertensive chronic kidney disease with stage 5 chronic kidney disease or end stage renal disease; J44.9 Chronic obstructive pulmonary disease, unspecified; I73.9 Peripheral vascular disease, unspecified
CPT/HCPCS: A6213; A9270

== ENCOUNTER 2025-01-23 00:28 | Day surgery (SDC) | payer MEDICARE ==
[2025-01-23] MEDS ORDERED: Lidocaine HCl 4% Cream 5 GM ONE (09:14)
== END 2025-01-23 23:00 | disposition home or self-care (01) ==
LOC: WOUND 00:28
DX: L89.523 Pressure ulcer of left ankle, stage 3 (principal); L89.893 Pressure ulcer of other site, stage 3; S81.802D Unspecified open wound, left lower leg, subsequent encounter; N18.6 End stage renal disease; I73.9 Peripheral vascular disease, unspecified; I12.0 Hypertensive chronic kidney disease with stage 5 chronic kidney disease or end stage renal disease; J44.9 Chronic obstructive pulmonary disease, unspecified; Z99.2 Dependence on renal dialysis
CPT/HCPCS: A6213; A9270

== ENCOUNTER 2025-01-30 00:22 | Day surgery (SDC) | payer MEDICARE ==
[2025-01-30] MEDS ORDERED: Lidocaine HCl 4% Cream 5 GM ONE (10:19)
== END 2025-01-30 23:03 | disposition home or self-care (01) ==
LOC: WOUND 00:22
DX: L89.523 Pressure ulcer of left ankle, stage 3 (principal); S81.812D Laceration without foreign body, left lower leg, subsequent encounter; X58.XXXD Exposure to other specified factors, subsequent encounter; L89.893 Pressure ulcer of other site, stage 3
CPT/HCPCS: A6213; A9270; G0463

== ENCOUNTER 2025-02-06 00:48 | Day surgery (SDC) | payer MEDICARE | END 2025-02-06 22:00 | disposition home or self-care (01) | LOC: WOUND 00:48 | DX: L89.523 Pressure ulcer of left ankle, stage 3 (principal); S81.802D Unspecified open wound, left lower leg, subsequent encounter; X58.XXXD Exposure to other specified factors, subsequent encounter; L89.893 Pressure ulcer of other site, stage 3; I73.9 Peripheral vascular disease, unspecified; I87.2 Venous insufficiency (chronic) (peripheral); I12.0 Hypertensive chronic kidney disease with stage 5 chronic kidney disease or end stage renal disease; N18.6 End stage renal disease; J44.9 Chronic obstructive pulmonary disease, unspecified; Z99.2 Dependence on renal dialysis ==

== ENCOUNTER 2025-02-20 07:12 | Day surgery (SDC) | payer MEDICARE | END 2025-02-20 23:20 | disposition home or self-care (01) | LOC: WOUND 07:12 | DX: L89.523 Pressure ulcer of left ankle, stage 3 (principal); S81.812D Laceration without foreign body, left lower leg, subsequent encounter; X58.XXXD Exposure to other specified factors, subsequent encounter; I87.2 Venous insufficiency (chronic) (peripheral); I73.9 Peripheral vascular disease, unspecified; J44.9 Chronic obstructive pulmonary disease, unspecified; I12.0 Hypertensive chronic kidney disease with stage 5 chronic kidney disease or end stage renal disease; N18.6 End stage renal disease; Z99.2 Dependence on renal dialysis | CPT/HCPCS: G0463 ==

== ENCOUNTER 2025-02-27 02:36 | Day surgery (SDC) | payer MEDICARE ==
[2025-02-28] MEDS ORDERED: Calcium Acetat667 MG PO (08:32)
[2025-02-28] MEDS ORDERED: ELIQUIS2.5 MG PO (08:33)
[2025-02-28] MEDS ORDERED: DULCOLAX STOOL100 M3 PO (08:33)
[2025-02-28] MEDS ORDERED: LOSA25 PO (08:34)
[2025-02-28] MEDS ORDERED: METO25ER PO (08:36)
== END 2025-02-27 23:58 | disposition home or self-care (01) ==
LOC: WOUND 02:36
DX: S81.812D Laceration without foreign body, left lower leg, subsequent encounter (principal); I73.9 Peripheral vascular disease, unspecified; N18.6 End stage renal disease; I12.0 Hypertensive chronic kidney disease with stage 5 chronic kidney disease or end stage renal disease; J44.9 Chronic obstructive pulmonary disease, unspecified
CPT/HCPCS: G0463

== ENCOUNTER 2025-03-02 06:10 | Inpatient (IN) | payer MEDICARE ==
[~2025-03-02] VITALS: Ht 160 cm; Wt 56.6 kg
[2025-03-02] VITALS (17 sets, daily range): BP systolic 97–152; BP diastolic 57–93
[~2025-03-02 06:10] MED LIST changes: +Calcium Acetat667 MG PO; +DULCOLAX STOOL100 M3 PO; +ELIQUIS2.5 MG PO; +LOSA25 PO; +METO25ER PO
[2025-03-02] MEDS ORDERED: NS 1,000 ML IV SCH (06:20)
[2025-03-02] MEDS ORDERED: CeFAZolin Sodium 2,000 MG in NS 100 ML IV SCH (06:20)
--- NOTE | 2025-03-02 06:52 | NUR ---
History, Chart, Medications and Allergies reviewed before start of procedure. Patient confirms NPO status and agrees with scheduled surgery. Pre-Op teaching done. Pt verbalizes understanding. Sister reports localized scrubing with sponge provided to them for surgery x 1. Pt O2 dependant on 2l nc. Lung sounds insp and exp wheeze t/o.
[2025-03-02] MEDS ORDERED: CeFAZolin Sodium 2,000 MG VIAL ONE (06:55)
[2025-03-02] MEDS ORDERED: FentaNYL Citrate 50 MCG/ML 2 ML Injection ONE (06:59)
[2025-03-02] MEDS ORDERED: Ipratropium/Albuterol SulF 2.5-0.5MG/3 ML Amp INH ONE (07:10)
[2025-03-02] MEDS ORDERED: Bupivacaine 0.5% W/EPI 1:200000 SDV 30 ML Vial ONE (07:28)
[2025-03-02] MEDS ORDERED: Ondansetron HCl 2 MG / ML 2ML Vial ONE (07:31)
[2025-03-02] MEDS ORDERED: Dexamethasone Sod Phos 10 MG/ML 1ML VIAL ONE (07:31)
[2025-03-02] MEDS ORDERED: Rocuronium Bromide 10 MG/ML 5ML Injection IV ONE ×2 (07:31→11:37)
[2025-03-02] MEDS ORDERED: Phenylephrine HCl 100 MCG/ML-NS 10MLSYR (1MG/10ML) ONE ×2 (07:44→08:45)
[2025-03-02] MEDS ORDERED: Phenylephrine HCl 10mg/ml 1 ml Vial ONE (07:51)
--- NOTE | 2025-03-02 09:04 | NUR ---
03/02/25 0904 Alessandra Houston PERITONEAL CATHETER REMOVAL STARTED AT 0804 ENDED AT 0825. LEFT HARDWARE HIP REMOVAL STARTED AT 0840. END TIME WILL BE CHARTED ON MAIN PAGE.
[2025-03-02] MEDS ORDERED: Sugammadex Sodium 200 MG/2ML SDV (100 MG/ML) ONE (10:10)
[2025-03-02] MEDS ORDERED: FLU VACC TS2025(65UP)/MF59C/PF 45 MCG/0.5 ML SYRINGE IM SCH (10:30)
[2025-03-02] MEDS ORDERED: HYDROmorphone HCl/Pf 1MG SYR IV PRN ×3 (10:30→12:10)
[2025-03-02] MEDS ORDERED: Magnesium Hydroxide Conc 10 ML UDC PO PRN (10:30)
[2025-03-02] MEDS ORDERED: Metoclopramide HCl 5MG / ML 2ML Vial IV PRN (10:30)
[2025-03-02] MEDS ORDERED: Ondansetron HCl 2 MG / ML 2ML Vial IV PRN ×2 (10:30→12:10)
[2025-03-02] MEDS ORDERED: Prochlorperazine Edisylate 10 mg Vial IV PRN (10:35)
--- NOTE | 2025-03-02 11:26 | NUR ---
PT TO ROOM 220 FROM PACU. POST OP VS STARTED AND STABLE. IV TO SL. AQUACELL TO HIP X-2 CDI. LAP SITES/INC CDI TO ABD. SCDS ON. WILL CONTINUE TO MONITOR.
[2025-03-02] MEDS ORDERED: FentaNYL Citrate 50 MCG/ML 2 ML Injection IV PRN ×2 (12:10)
[2025-03-02] MEDS ORDERED: HydrALAZINE HCl 20 MG / ML 1ML Vial IV PRN (12:10)
[2025-03-02] MEDS ORDERED: Albuterol 2.5 MG/3 ML VIAL INH PRN (12:10)
[2025-03-02] MEDS ORDERED: Darbepoetin (Pharmacy Consult) SC SCH (17:05)
--- NOTE | 2025-03-02 18:08 | NUR ---
Shift summary pt pod 0 l hip hardware removal and peritoneal dialysis cath removal. pt up in hallway with pt and completed ot assessment and worked with them. denies complaints. will continue to monitor.
[2025-03-03] VITALS (21 sets, daily range): BP systolic 92–137; BP diastolic 58–92
--- NOTE | 2025-03-03 00:12 | NUR ---
PT REFUSED BABY ASPIRIN HEMA TELLING HER RN THAT DR PIMENTEL TOLD HER NOT TO TAKE ASPIRIN.I ADVISED DR KATZ AND PT IS SCHEDULED TO RESUME HER ELIQUIS TOMORROW NIGHT.PTS RN WILL ASK DAY RN TO CONFIRM IF DOCTOR MAY WANT TO START ELIQUIS IN AM INSTEAD OF NIGHT DUE TO PT REFUSAL OF ASA.
[2025-03-03 05:38] LABS: BASOPHILS ABSOLUTE AUTO 0.02 K/mm3 (0.00-0.23); BASOPHILS PERCENT AUTO 0 % (0-2); EOSINOPHILS ABSOLUTE AUTO 0.05 K/mm3 (0.00-0.68); EOSINOPHILS PERCENT AUTO 1 % (0-6); Hematocrit 39.5 % (33.0-51.0); Hemoglobin 11.5 g/dL (11.5-16.0); IMMATURE GRAN ABSOLUTE AUTO 0.02 K/mm3 (0.00-0.10); IMMATURE GRAN PERCENT AUTO 0 % (0-1); LYMPHOCYTES ABSOLUTE AUTO 1.27 K/mm3 (0.84-5.20); LYMPHOCYTES PERCENT AUTO 21 % (21-46); MONOCYTES ABSOLUTE AUTO 0.68 K/mm3 (0.16-1.47); MONOCYTES PERCENT AUTO 11 % (4-13); Mean Corpuscular HGB Conc 29.1 g/dL (31.5-36.5); Mean Corpuscular Volume 107 fL (80-100); NEUTROPHILS ABSOLUTE AUTO 4.06 K/mm3 (1.96-9.15); NEUTROPHILS PERCENT AUTO 67 % (41-73); NRBC ABSOLUTE 0.00 K/mm3 (0.00-0.02); NRBC Auto 0.0 /100 WBC (0.0-0.2); Platelet Count 203 K/mm3 (150-400); RDW Coefficient Variation 18.8 % (11.7-14.2); RDW Standard Deviation 74.0 fL (35.1-46.3)
[2025-03-03 06:11] LABS: Albumin, Blood 2.7 g/dL (3.4-5.0); Anion Gap 12 mmol/L (3-11); Blood Urea Nitrogen 43 mg/dL (8-24); CO2, Blood 30 mmol/L (21-32); Calcium, Blood 7.8 mg/dL (8.5-10.1); Chloride, Blood 97 mmol/L (98-108); Creatinine, Blood 4.99 mg/dL (0.40-1.00); Glucose, Blood 81 mg/dL (70-99); Magnesium, Blood 2.3 mg/dL (1.6-2.4); Phosphorus, Blood 6.1 mg/dL (2.5-4.9); Potassium, Blood 4.7 mmol/L (3.5-5.5); Sodium, Blood 134 mmol/L (136-145)
--- NOTE | 2025-03-03 07:06 | NUR ---
SHIFT SUMMARY POD 1 L HIP HARDWARE REPLACEMENT AND PERITONEAL DIALYSIS CATH REMOVAL. VSS. A&O X4. AQUACEL TO L HIP C/D/I. PAIN MANAGED WELL PER EMAR. 1 PERSON ASSIST W/FWW AND GB TO AMBULATE. ONE INCONTINENT VOID DURING SHIFT. 2L O2 VIA NC, SPO2 >92%. PLAN FOR DIALYSIS AND CHEST PHYSIOTHERAPY TODAY. CALL LIGHT WITHIN REACH. REPORT GIVEN TO ONCOMING NURSE.
[2025-03-03] MEDS ORDERED: Albumin (Human) 25gm/100ml 100 ML IV SCH (07:45)
[2025-03-03] MEDS ORDERED: Calcium Acetate 667 MG Gel Cap PO SCH ×2 (08:30→09:00)
[2025-03-03] MEDS ORDERED: Cholecalciferol 1000 Unit Tablet (=25MCG) PO SCH (09:00)
--- NOTE | 2025-03-03 16:46 | NUR ---
SHIFT SUMMARY NO ACUTE CHANGES. PATIENT ALERT AND ORIENTED X4. COMMUNICATING NEEDS EFFECTIVELY. POD 1 L HIP HARDWARE REPLACEMENT. VSS. MANAGING PAIN PER EMAR W/ SCHEDULED TYLENOL. ON BASELINE 2L VIA NC. LUNG SOUNDS COARSE T/O - COUGH BECOMING MORE PRODUCTIVE T/O DAY. CPT THERAPY ORDERS IN PLACE. DIALYSIS COMPLETED TODAY. X2 AQUACEL DRESSINGS W/ SCANT SS DRAINAGE - OTHERWISE C/D/I. WORKED W/ THERAPY TODAY - UP W/ 1P ASSIST FWW GB. TTWB. CURRENTLY UP IN CHAIR. TOLERATING PO INTAKE. BEDBATH COMPLETED TODAY. CALL LIGHT IN REACH.
[2025-03-04] VITALS (17 sets, daily range): BP systolic 84–144; BP diastolic 42–83
--- NOTE | 2025-03-04 05:13 | NUR ---
EMBRYOLOGY TEACHER SUMMARY PT IS POD 1 FOR L HIP HARDWARE REPLACEMENT. PT DOING WELL AND HAS REPORTED MINIMAL PAIN WHILE IN BED. ONLY MEDICATED WITH SCHEDULED TYLENOL WHICH HAS BEEN ADEQUATE FOR PAIN CONTROL. PT REMAINS ON HER BASELINE 2L O2 VIA NC. AQUACEL DRESSINGS X2 TO L HIP INTACT WITH ONE SMALL AREA OF SHADOWING TO EACH DRESSING. SHADOWING UNCHANGED THROUGH THE NIGHT. PT HAS SLEPT WELL TONIGHT. VSS, WCTM.
[2025-03-04 05:14] LABS: Hematocrit 37.4 % (33.0-51.0); Hemoglobin 11.1 g/dL (11.5-16.0)
[2025-03-04 05:38] LABS: Albumin, Blood 3.4 g/dL (3.4-5.0); Anion Gap 8 mmol/L (3-11); Blood Urea Nitrogen 38 mg/dL (8-24); CO2, Blood 32 mmol/L (21-32); Calcium, Blood 8.0 mg/dL (8.5-10.1); Chloride, Blood 96 mmol/L (98-108); Creatinine, Blood 4.09 mg/dL (0.40-1.00); Glucose, Blood 90 mg/dL (70-99); Magnesium, Blood 2.3 mg/dL (1.6-2.4); Phosphorus, Blood 4.8 mg/dL (2.5-4.9); Potassium, Blood 4.0 mmol/L (3.5-5.5); Sodium, Blood 132 mmol/L (136-145)
--- NOTE | 2025-03-04 18:35 | NUR ---
SHIFT SUMMARY POD 2 L HIP REPAIR. NO ACUTE CHANGES THIS SHIFT. A&O x4, VSS. DIALYSIS TODAY. TTWB TO L LEG - TOLERATES WELL. WORKED w/THERAPY - AMBULATED IN HALLWAY & ROOM w/WALKER. MINIMAL PAIN CONTROLLED WELL w/SCHEDULED TYLENOL. TOLERATING FOOD & FLUIDS WELL. MINIMAL URINE OUTPUT - PT STATES THIS IS BASELINE FOR HER ON DIALYSIS DAYS. CURRENTLY RESTING IN BED w/CALL LIGHT WITHIN REACH.
[2025-03-05 05:12] VITALS: BP 123/82
[2025-03-05 05:41] LABS: Hematocrit 41.4 % (33.0-51.0); Hemoglobin 12.4 g/dL (11.5-16.0)
[2025-03-05 06:10] LABS: Albumin, Blood 3.2 g/dL (3.4-5.0); Anion Gap 10 mmol/L (3-11); Blood Urea Nitrogen 35 mg/dL (8-24); CO2, Blood 28 mmol/L (21-32); Calcium, Blood 8.5 mg/dL (8.5-10.1); Chloride, Blood 98 mmol/L (98-108); Creatinine, Blood 3.83 mg/dL (0.40-1.00); Glucose, Blood 83 mg/dL (70-99); Magnesium, Blood 2.4 mg/dL (1.6-2.4); Phosphorus, Blood 4.2 mg/dL (2.5-4.9); Potassium, Blood 4.1 mmol/L (3.5-5.5); Sodium, Blood 132 mmol/L (136-145)
[2025-03-05 07:08] VITALS: BP 120/73
--- NOTE | 2025-03-05 07:35 | NUR ---
SHIFT SUMMARY NO ACUTE CHANGES THIS SHIFT. POD 3 L HIP HARDWARE REPAIR. PAIN MANAGED WELL PER EMAR. AQUACEL X2 TO L HIP C/D/I. PT ANURIC THIS SHIFT, PT STATES THIS IS BASELINE AFTER DIALYSIS. SPO2 97% ON 2L O2 VIA NC. PT RESTING IN BED, CALL LIGHT WITHIN REACH.
--- NOTE | 2025-03-05 13:48 | NUR ---
DISCHARGE SUMMARY POD 3 L HIP FX REPAIR. A&O x4, VSS. L HIP w/2 AQUACEL DRESSINGS w/MINIMAL OLD DARK RED SHADOWING. MINIMAL PAIN CONTROLLED WELL w/TYLENOL PER EMAR. TOLERATING FOOD & FLUIDS WELL. SBA TO BATHROOM TO VOID. AMBULATED IN ROOM TODAY. IV DC'D. DISCHARGE INSTRUCTIONS SENT. FAMILY NOTIFIED. TRANSPORT FOR PICKUP. [facility]
== END 2025-03-05 13:48 | DRG 498 ==
LOC: ORSCMMR 06:10 → ORD 07:30 → SURS 10:24 → ORSCMMR 10:24 → ORD 10:45 → SURS 11:12
PROVIDERS: Internal Medicine Nephrology; Surgery; ADMIT Orthopaedic Surgery
PROC: 0QWC04Z Revision of Internal Fixation Device in Left Lower Femur, Open Approach (ICD-10-PCS; principal; 2025-03-02 07:30)
PROC: 5A1D70Z Performance of Urinary Filtration, Intermittent, Less than 6 Hours Per Day (ICD-10-PCS; 2025-03-02 07:30)
DX: S72.142K Displaced intertrochanteric fracture of left femur, subsequent encounter for closed fracture with nonunion (principal); N18.6 End stage renal disease; N25.81 Secondary hyperparathyroidism of renal origin; E87.1 Hypo-osmolality and hyponatremia; I12.0 Hypertensive chronic kidney disease with stage 5 chronic kidney disease or end stage renal disease; Z99.2 Dependence on renal dialysis; M81.0 Age-related osteoporosis without current pathological fracture; J44.9 Chronic obstructive pulmonary disease, unspecified; I48.91 Unspecified atrial fibrillation; D63.1 Anemia in chronic kidney disease; Z96.651 Presence of right artificial knee joint; Z85.3 Personal history of malignant neoplasm of breast; Z87.19 Personal history of other diseases of the digestive system; Z87.891 Personal history of nicotine dependence; Z90.89 Acquired absence of other organs; Z79.891 Long term (current) use of opiate analgesic; Z79.899 Other long term (current) drug therapy; Z79.82 Long term (current) use of aspirin; X58.XXXD Exposure to other specified factors, subsequent encounter
CPT/HCPCS: 36415; 73502; 80069; 83735; 85014; 85018; 85025; 94664; 94760; 97110; 97116; 97161; 97165; 97530; A9270; C1769; J0690; J1100; J2371; J2405; J2704; J2919; J3010; J7030; P9047